=== PATIENT | male | born 1945 | race Caucasian/White ===

== ENCOUNTER → 2016-05-28 | Outpatient (CLI) | payer MEDICARE, BC ==
[~2016-05-28] MED LIST: CHOL200012 PO; GLUC1CAP13 PO; LISI-170 PO; MELO-184 PO; METF500T27 PO; MULT-717 PO; OMEP-110 PO; TAMS0.4C2 PO
== END | disposition home or self-care (01) ==
LOC: CVU 07:10
PROVIDERS: ATTEND Internal Medicine
DX: Z13.6 Encounter for screening for cardiovascular disorders (principal); E11.9 Type 2 diabetes mellitus without complications; I77.4 Celiac artery compression syndrome; I70.0 Atherosclerosis of aorta; Z87.891 Personal history of nicotine dependence
CPT/HCPCS: 93978

== ENCOUNTER → 2020-07-05 | Outpatient (CLI) | payer MEDICARE, OTHER ==
[~2020-07-05] MED LIST changes: +ASCO500T8 PO; -CHOL200012 PO; +CHOL200074 PO; +GABA300C PO; +LACT1CAP35 PO; -MELO-184 PO; +MELO15TA24 PO; +Prevagen PO; +ZINC50TA44 PO
[2020-07-05 11:27] LABS: BASOPHILS % (AUTO) 1 % (0-1); EOSINOPHILS % (AUTO) 0 % (1-7); LYMPHOCYTES % (AUTO) 16 % (22-44); MD NO; MEAN CORPUSCULAR HEMOGLOBIN 31.2 pg (27.5-34.5); MEAN CORPUSCULAR HGB CONC 33.6 g/dL (33.2-36.2); MEAN PLATELET VOLUME 10.4 fL (7.4-10.4); MONOCYTES % (AUTO) 6 % (2-9); NEUTROPHILS % (AUTO) 78 % (42-75); PLATELET COUNT 131 x10^3/uL (130-400); RED BLOOD COUNT 3.91 x10^6/uL (4.38-5.82); RED CELL DISTRIBUTION WIDTH 14.3 % (9.4-14.8)
[2020-07-05 11:27] LABS: MICROSCOPIC NOT IND
[2020-07-05 11:35] LABS: ALANINE AMINOTRANSFERASE 27 U/L (12-78); ANION GAP 4 mmol/L (5-15); CALCIUM 9.2 mg/dL (8.5-10.1); CHLORIDE 107 mmol/L (98-107)
[2020-07-05 11:37] LABS: ALKALINE PHOSPHATASE 59 U/L (45-117); TOTAL PROTEIN 7.5 g/dL (6.4-8.2)
== END | disposition home or self-care (01) ==
LOC: STAR 10:27
PROVIDERS: ATTEND Urology
DX: Z01.818 Encounter for other preprocedural examination (principal); C67.9 Malignant neoplasm of bladder, unspecified; Z20.822 Contact with and (suspected) exposure to COVID-19
CPT/HCPCS: 36415; 80053; 81003; 85025; 87086; 93005; U0003; U0005

== ENCOUNTER 2020-07-11 12:14 | Day surgery (SDC) | payer MEDICARE, BC ==
[~2020-07-11] VITALS: Ht 188 cm; Wt 86.6 kg
[2020-07-11] MEDS ORDERED: LACTATED RINGERS 1,000 ML IV SCH (13:00)
[2020-07-11] MEDS ORDERED: CHLORHEXIDINE 15 ML UDC PO ONE (13:00)
[2020-07-11] MEDS ORDERED: CHLORHEXIDINE 15 ML UDC ONE (13:09)
[2020-07-11 13:31] VITALS: BP 127/62
[2020-07-11] MEDS ORDERED: FENTANYL PF 100 MCG/2ML IV PRN (14:30)
[2020-07-11] MEDS ORDERED: OXYcodone 5 MG/5 ML ORAL.SOL UDC PO PRN (14:30)
[2020-07-11] MEDS ORDERED: hydrALAzine 20 MG/ML, 1ML IV PRN (14:30)
[2020-07-11] MEDS ORDERED: HALOPERIDOL 5 MG/ML IV PRN (14:30)
[2020-07-11] MEDS ORDERED: MEPERIDINE/PF 25MG/0.5ML IVPush PRN (14:30)
[2020-07-11] MEDS ORDERED: PROMETHAZINE 25 MG/ML, 1ML IVPush PRN (14:30)
[2020-07-11] MEDS ORDERED: ACETAMINOPHEN 325 MG TABLET PO PRN (14:30)
[2020-07-11] MEDS ORDERED: DIPHENHYDRAMINE 50 MG/ML, 1ML IVPush PRN (14:30)
[2020-07-11] MEDS ORDERED: LABETALOL 5MG/ML, 20ML IV PRN (14:30)
[2020-07-11] MEDS ORDERED: HYDROmorphone 1 MG/ML, 1ML INJ IVPush PRN (14:30)
[2020-07-11] MEDS ORDERED: FENTANYL PF 100 MCG/2ML ONE (14:50)
[2020-07-11] MEDS ORDERED: DEXAMETHASONE 4 MG/ML, 1ML ONE (15:03)
[2020-07-11] MEDS ORDERED: CEFAZOLIN 1,000 MG ONE (15:03)
[2020-07-11] MEDS ORDERED: PROPOFOL 10 MG/ML, 20ML ONE (15:03)
[2020-07-11] MEDS ORDERED: ONDANSETRON 2MG/ML, 2ML ONE (15:03)
== END 2020-07-11 17:50 | disposition home or self-care (01) ==
LOC: OUT 12:14
PROVIDERS: ATTEND Urology
DX: C67.9 Malignant neoplasm of bladder, unspecified (principal); E11.9 Type 2 diabetes mellitus without complications; I10 Essential (primary) hypertension; M19.90 Unspecified osteoarthritis, unspecified site; Z79.899 Other long term (current) drug therapy; Z79.1 Long term (current) use of non-steroidal anti-inflammatories (NSAID); Z72.89 Other problems related to lifestyle; Z87.891 Personal history of nicotine dependence; Z98.890 Other specified postprocedural states
CPT/HCPCS: 52204; 52601; 82962; 88305; C1726; C1758; C1769; J0690; J1100; J2405; J2704; J3010; J7120